=== PATIENT | female | born 1950 | race Caucasian/White ===

== ENCOUNTER 2018-09-17 13:23 | Outpatient (REF) | payer BC, SELFPAY | END 2018-09-17 13:43 | LOC: NCHCN 13:23 | PROVIDERS: PCP Family Medicine; Visit Provider Family Medicine | DX: N39.0 Urinary tract infection, site not specified (principal) | CPT/HCPCS: 87077; 87086; 87186 ==

== ENCOUNTER 2020-11-09 17:57 | Outpatient (REF) | payer OTHER, MEDICARE, SELFPAY | END 2020-11-09 17:58 | disposition home or self-care (01) | LOC: NCHCN 17:57 | PROVIDERS: PCP Family Medicine; Visit Provider Nurse Practitioner Family | DX: N39.0 Urinary tract infection, site not specified (principal) | CPT/HCPCS: 87077; 87086; 87186 ==

== ENCOUNTER 2024-05-23 19:38 | Outpatient (REF) | payer MEDICARE, SELFPAY ==
[2024-05-23 20:10] LABS: Abs Immature Grans 0.01 10^3/uL (0.0-0.06); Absolute Basophil Count 0.04 10^3/uL (0.0-0.2); Absolute Eosinophil Count 0.05 10^3/uL (0.0-0.7); Absolute Lymphocyte Count 1.96 10^3/uL (1.2-3.4); Absolute Monocyte Count 0.67 10^3/uL (0.1-0.8); Absolute Neutrophil Count 2.97 10^3/uL (1.2-6.7); Basophils % 0.7 %; Eosinophils % 0.9 %; HCT 45.4 % (36.0-46.0); HGB 15.4 g/dL (11.2-15.7); Immature Grans % 0.2 %; Lymphocytes % 34.4 %; MCH 37.6 pg (27.0-33.0); MCHC 33.9 % (32.0-36.0); MCV 111 fL (80-95); MPV 11.9 fL (8.0-11.0); Monocytes % 11.8 %; RDW 12.7 % (11.7-14.6); RDW-SD 52.9 fL
[2024-05-23 20:33] LABS: Diff Comment RBC Morph Reviewed; Platelet Count 94 10^3/uL (130-400)
[2024-05-23 20:34] LABS: Macrocytosis 2+
[2024-05-23 20:49] LABS: Hemoglobin A1C 4.6 % (<5.7)
[2024-05-23 21:57] LABS: ALT 96 U/L (14-59); AST 89 U/L (15-37); Alkaline Phosphatase 114 U/L (46-116); Anion Gap 8.5 mmol/L (3-11); BUN 24 mg/dL (7-18); Bilirubin, Total 1.28 mg/dL (0.2-1.0); CO2 26.5 mmol/L (21.0-32.0); CREATININE 0.7 mg/dL (0.55-1.02); Calcium 8.7 mg/dL (8.5-10.1); Calculated LDL 60 mg/dL (<100); Chloride 108 mmol/L (98-107); Cholesterol 121 mg/dL (<200); Estimated GFR 92.41 (mL/min/1.73m2); Glucose 102 mg/dL (74-106); HDL Cholesterol 43 mg/dL (40-60); Potassium 4.9 mmol/L (3.5-5.1); Sodium 143 mmol/L (136-145); Total Protein 7.5 g/dL (6.4-8.2); Triglyceride 91 mg/dL (<150)
== END 2024-05-23 19:39 | disposition home or self-care (01) ==
LOC: NCHCN 19:38
PROVIDERS: PCP Family Medicine; Visit Provider Nurse Practitioner Family
DX: Z00.00 Encounter for general adult medical examination without abnormal findings (principal); I48.91 Unspecified atrial fibrillation
CPT/HCPCS: 80053; 80061; 82306; 83036; 85025

== ENCOUNTER 2024-06-29 17:20 | Outpatient (REF) | payer MEDICARE, SELFPAY ==
[2024-06-29 20:19] LABS: Iron 137 ug/dL (50-170); Total Iron Binding Capacity 258 ug/dL (250-450); Transferrin Sat 53 % (15-50)
[2024-06-29 20:30] LABS: Bilirubin, Direct 0.6 mg/dL (0.0-0.2); Bilirubin, Total 1.35 mg/dL (0.2-1.0); TSH (W/Ref FT4) 2.64 uIU/mL (0.36-3.74)
[2024-06-29 21:10] LABS: Vitamin B12 1712 pg/mL (193-986)
[2024-06-29 21:12] LABS: Folate > 20.0 ng/mL (8.6-20.0)
[2024-06-30 19:32] LABS: Hepatitis A Antibody IgM Negative (Negative); Hepatitis B Core Antibody Positive (Negative); Hepatitis B surface Ag Negative (Negative); Hepatitis C Ab w Rflx HCV PCR Reactive (Negative)
[2024-07-01 12:13] LABS: HCV RNA Detection Quantitative 1790000 IU/mL (Undetected); HCV RNA Qualitative Detected (Undetected)
[2024-07-05 13:11] LABS: HBc IgM Ab, S Negative (Negative)
== END 2024-06-29 17:21 | disposition home or self-care (01) ==
LOC: NCHCN 17:20
PROVIDERS: PCP Family Medicine; Visit Provider Nurse Practitioner Family
DX: I48.91 Unspecified atrial fibrillation (principal); D69.6 Thrombocytopenia, unspecified; R74.01 Elevation of levels of liver transaminase levels; R17 Unspecified jaundice
CPT/HCPCS: 86704; 86709; 86803; 87340; 87522; 82247; 82248; 82607; 82746; 83540; 83550; 84443; 86705

== ENCOUNTER 2025-02-13 17:52 | Outpatient (REF) | payer MEDICARE, SELFPAY ==
[2025-02-13 16:34] LABS: Anion Gap 6.2 mmol/L (3-11); BUN 11 mg/dL (7-18); CO2 29.8 mmol/L (21.0-32.0); CREATININE 0.7 mg/dL (0.55-1.02); Calcium 8.3 mg/dL (8.5-10.1); Chloride 106 mmol/L (98-107); Estimated GFR 91.83 (mL/min/1.73m2); Glucose 114 mg/dL (74-106); Potassium 3.5 mmol/L (3.5-5.1); Sodium 142 mmol/L (136-145)
== END 2025-02-13 17:53 | disposition home or self-care (01) ==
LOC: NCHCN 17:52
PROVIDERS: PCP Nurse Practitioner Family; Visit Provider Nurse Practitioner Family
DX: R60.0 Localized edema (principal)
CPT/HCPCS: 80048